=== PATIENT | male | born 1975 | race Caucasian/White ===

== ENCOUNTER 2023-12-24 14:21 | Inpatient (IN) | payer MEDICARE ==
[2023-12-24] VITALS (97 sets, daily range): BP systolic 155; BP diastolic 93; PULSE 70; TEMP 98.5; O2SAT 86–99
[~2023-12-24] VITALS: Ht 177.8 cm; Wt 97.5 kg
[~2023-12-24 14:21] MED LIST: TESSALON P100 MG/CAP PO
[2023-12-24 14:51] LABS: HEMATOCRIT 43.6 % (42.0-52.0); HEMOGLOBIN 14.7 g/dl (13.5-18.0); MEAN CELL VOLUME 92 fl (80.0-100.0); MEAN CORPUSCULAR HEMOGLOBIN 31 pg (27-31); MEAN CORPUSCULAR HGB CONC 34 g/dl (33.0-37.0); MEAN PLATELET VOLUME 9.6 fl (7.4-10.4); PLATELET COUNT 294 K/mm3 (130-400); RED BLOOD COUNT 4.72 M/mm3 (4.20-5.60); REDCELL DISTRIBUTION WIDTH-CV 13.8 % (11.5-14.5)
[2023-12-24 14:59] LABS: PARTIAL THROMBOPLASTIN TIME 34.1 SECONDS (26.0-37.0)
[2023-12-24 15:01] LABS: BILIRUBIN,TOTAL 0.2 mg/dL (0.2-1.2); CALCIUM 9.6 mg/dL (8.4-10.2); CREATININE, serum 0.92 mg/dL (0.72-1.25); MAGNESIUM 1.9 mg/dL (1.6-2.6); POTASSIUM 3.9 mmol/L (3.5-4.5); TOTAL PROTEIN 7.7 gm/dL (6.2-8.1)
[2023-12-24 15:07] LABS: TROPONIN-I 0.021 ng/mL (0.00-0.033)
[2023-12-24 15:26] LABS: BAND 10 % (0-10); EOSINOPHIL 1 % (0-4); LYMPHOCYTE 34 % (20.0-51.0); NEUTROPHILS 53 % (42.0-75.2)
[2023-12-24] MEDS ORDERED: Nitroglycerin 0.4 MG/HR DAILY PATCH TD ONE (18:00)
[2023-12-24] MEDS ORDERED: Clopidogrel 300 MG DOSE (75 mg x 4 tabs) PO ONE (18:00)
[2023-12-24] MEDS ORDERED: Metoprolol Tartrate 25 MG TAB PO ONE (18:00)
[2023-12-24] MEDS ORDERED: Ondansetron 4 MG/2 ML VIAL IV ONE (18:15)
[2023-12-24] MEDS ORDERED: Magnes Hydrox (MOM) 80 MG/ML 30 ML CUP PO PRN (18:45)
[2023-12-24] MEDS ORDERED: Promethazine 25 MG Rectal SUPP RC PRN (18:45)
[2023-12-24] MEDS ORDERED: Ondansetron 4 MG/2 ML VIAL IV PRN (18:45)
[2023-12-24] MEDS ORDERED: NS 1,000 ML IV SCH (18:45)
[2023-12-24] MEDS ORDERED: Mag/Al Hydrox/Simeth Susp 30 ML CUP PO PRN (18:45)
[2023-12-24] MEDS ORDERED: Nitroglycerin 2% Topical Oint 1 GM UD TD SCH (18:56)
[2023-12-24] MEDS ORDERED: Morphine 4 MG/ML VIAL IV PRN (19:00)
[2023-12-24] MEDS ORDERED: CLARITIN 1010 MG/TAB PO (19:14)
[2023-12-24] MEDS ORDERED: Nitroglycerin/D5W 250 ML IV SCH (19:15)
--- NOTE | 2023-12-24 19:39 | NUR ---
PATIENT ARRIVED TO ICU VIA WHEELCHAIR FROM ER. PATIENT HAS COMPLAINTS OF NAUSEA AND CHEST PAIN AT THIS TIME. ORDERS FOR ZOFRAN, MORPHINE, AND NITRO DRIP IN NOV. PATIENT ARRIVED ON ROOM AIR. PATIENT ARRIVED WITH GLASSES, CELL PHONE, DAIRY CHEMIST, CLOTHES, SHOES, JEWELRY, WALLET. PATIENT DOES NOT WISH TO SEND VALUABLES TO SECURITY AT THIS TIME.
[2023-12-24] MEDS ORDERED: [UNRECOGNIZED DRUG - OTHER] PO SCH (21:00)
[2023-12-24] MEDS ORDERED: Atorvastatin 10 MG TAB PO SCH (21:00)
[2023-12-24] MEDS ORDERED: LOVASTATIN 20 MG PO SCH (21:00)
[2023-12-24] MEDS ORDERED: Famotidine 20 MG TAB PO SCH (21:00)
[2023-12-24] MEDS ORDERED: Melatonin 3 MG TAB PO PRN (21:00)
[2023-12-24] MEDS ORDERED: Docusate Sodium 100 MG CAP PO SCH (21:00)
[2023-12-24] MEDS ORDERED: Atorvastatin 40 MG TAB PO SCH (21:00)
[2023-12-24] MEDS ORDERED: Heparin 5,000 UNITS/ML 1 ML VIAL IV PRN (22:45)
[2023-12-24] MEDS ORDERED: Heparin/D5W 250 ML IV SCH (22:45)
[2023-12-25] VITALS (471 sets, daily range): BP systolic 93–121; BP diastolic 48–74; PULSE 65–92; TEMP 97.8–98.6; O2SAT 83–100
[2023-12-25 04:42] LABS: HEMATOCRIT 38.1 % (42.0-52.0); HEMOGLOBIN 12.8 g/dl (13.5-18.0); MEAN CELL VOLUME 92 fl (80.0-100.0); MEAN CORPUSCULAR HEMOGLOBIN 31 pg (27-31); MEAN CORPUSCULAR HGB CONC 34 g/dl (33.0-37.0); MEAN PLATELET VOLUME 9.5 fl (7.4-10.4); PLATELET COUNT 254 K/mm3 (130-400); RED BLOOD COUNT 4.15 M/mm3 (4.20-5.60)
[2023-12-25 05:00] LABS: CALCIUM 8.8 mg/dL (8.4-10.2); CHOLESTEROL RISK RATIO 9.2; CREATININE, serum 0.94 mg/dL (0.72-1.25); POTASSIUM 3.9 mmol/L (3.5-4.5)
[2023-12-25 05:35] LABS: BAND 2 % (0-10); LYMPHOCYTE 58 % (20.0-51.0); NEUTROPHILS 39 % (42.0-75.2); PLATELET ESTIMATE NORMAL (NORMAL)
--- NOTE | 2023-12-25 07:00 | NUR ---
Report received from ELVIA Fowler; patient currently resting in bed with eyes closed. Patient has nitro, heparin, and NS running through a peripheral line; patient is on 3 liters oxygen via NC. No other lines or tubes are in place at this time. Patient's vital signs are within normal limits this morning.
[2023-12-25] MEDS ORDERED: Metoprolol Tartrate 25 MG TAB PO SCH (09:00)
[2023-12-25] MEDS ORDERED: Nicotine 21 MG DAILY PATCH TD SCH (09:00)
[2023-12-25] MEDS ORDERED: Loratadine 10 MG TAB PO SCH (09:00)
[2023-12-25] MEDS ORDERED: Clopidogrel 75 MG TAB PO SCH (09:00)
--- NOTE | 2023-12-25 09:18 | NUR ---
Underground Drill Operator met with patient to complete initial intake. Patient lives in [place] with his son, Drew along with Drew's and their children. Patient also has a life partner, Ofelia (ph#[phone]) however she does not live in the home. Patient does not have primary care established but was interested in assistance with getting established somewhere. SW provided list of local PCPs. Patient gets medications from [facility] and does not use any medical equipment. Patient is independent with ADLS and plans to return home at time of discharge. Patient does not have DPOA-HC and is not interested in creating one at this time. Patient is not and has two children, Drew and Stephanie, who lives in [place]. Discharge Plan: Home
--- NOTE | 2023-12-25 11:46 | NUR ---
D: Initial visit: Radiologic Technologist stopped by room on rounds. Pt was resting and content watching tv. A: Pt stated he has no needs right now. P: Radiologic Technologist informed pt that if he needed anything from the production reproduction manager area to let his nurse know. Radiologic Technologist will follow up as needed.
[2023-12-25] MEDS ORDERED: Bivalirudin 250 MG in NS 50 ML IV SCH (15:16)
[2023-12-25] MEDS ORDERED: Midazolam 2 MG/2 ML VIAL IV SCH (15:39)
[2023-12-25] MEDS ORDERED: fentaNYL 50 MCG/ML 2 ML VIAL IV SCH (15:40)
--- NOTE | 2023-12-25 16:00 | NUR ---
Pt returned from lab manager at 1556. Pt is drowsy but easily arousable and oriented. Site to right groin is soft, nontender and dressing is CDI. Pt currently denies any chest pain. Nitro infusing at 30mcg/min. Orders to titrate nitro off as patient tolerates. Vital signs are stable. Call light within reach. Will continue with POC.
--- NOTE | 2023-12-25 16:01 | NUR ---
Bedside report completed with Amarilys Moralze. Nitro at 30mcg/min, angiomax at 34ml/hr to be run for 2 hours from infusion start. Call light within reach, first set of vitals reviewed. Insertion site reviewed. Amarilys MORALEZ denies questions concerns at this time.
--- NOTE | 2023-12-25 16:04 | NUR ---
See merge for all medication, assessment, intervention, and vital sign times.
--- NOTE | 2023-12-25 20:03 | NUR ---
Received report from ELVIA Carbajal. Pt is currently alert and resting in bed with call light within reach. Pt's right femoral cath site looks clean, dry and intact with no hematoma's present and pulses felt. Pt is still in flat time until 2200. Pt's vitals are stable at this time. Pt denies CP at this time. Pt on nitro drip at this time and was titrating down due to no complaints of CP. Pt also has NS running at this time. Pt is on room air. Pt does not look in distress at this time. Will contiue with pt care.
[2023-12-26] VITALS (10 sets, daily range): BP systolic 109–130; BP diastolic 57–76; PULSE 61–70; TEMP 97.7–98.2; O2SAT 91–95
[2023-12-26 05:16] LABS: BASO % 0.4 % (0.0-2.0); EOS # 0.1 K/mm3 (0.0-0.7); EOS % 0.8 % (0.0-4.0); GRAN # 5.4 K/mm3 (1.4-6.5); GRAN % 60.7 % (42.2-75.2); HEMATOCRIT 38.7 % (42.0-52.0); HEMOGLOBIN 12.9 g/dl (13.5-18.0); LYMPH # 2.8 K/mm3 (1.2-3.4); LYMPH % 31.3 % (20.0-51.0); MEAN CELL VOLUME 94 fl (80.0-100.0); MEAN CORPUSCULAR HEMOGLOBIN 31 pg (27-31); MEAN CORPUSCULAR HGB CONC 33 g/dl (33.0-37.0); MEAN PLATELET VOLUME 10.3 fl (7.4-10.4); MONO # 0.5 K/mm3 (0.1-0.6); MONO % 5.5 % (1.7-9.3); PLATELET COUNT 214 K/mm3 (130-400); RED BLOOD COUNT 4.13 M/mm3 (4.20-5.60)
--- NOTE | 2023-12-26 06:04 | NUR ---
Pt had an uneventful night. Pt denied chest pain throughout the night. Pt states that there is some pain at his groin site but the pain never increased and the right fomoral site is clean, dry, and intact with no hematomas felt. Pt's pulses are felt. Pt is now off the nitro drip and NS has been stopped. Pt's vitals have been stable throughout the night with pt on room air. Pt is currently resting in bed with the call light within reach. Will give report to day shift nurse.
[2023-12-26 06:16] LABS: CALCIUM 8.6 mg/dL (8.4-10.2); CREATININE, serum 0.88 mg/dL (0.72-1.25); POTASSIUM 4.2 mmol/L (3.5-4.5)
--- NOTE | 2023-12-26 07:00 | NUR ---
Report received from ELVIA Sethi; patient currently resting in bed with no meds or fluids running through his peripheral IVs. Patient is on room air and vital signs are within normal limits this morning. Patient has no complaints of pain this morning; chest pain has not returned.
[2023-12-26] MEDS ORDERED: PLAVIX 75MG TAB75 MG PO (08:14)
[2023-12-26] MEDS ORDERED: NITROSTAT0.4 MG/TAB SL (08:15)
[2023-12-26] MEDS ORDERED: LIPITOR 40MG TA40 MG PO (08:15)
[2023-12-26] MEDS ORDERED: TOPROL XL 50MG50 MG PO (08:16)
[2023-12-26] MEDS ORDERED: ASPIRIN E.C. 8181 MG PO (08:16)
--- NOTE | 2023-12-26 12:00 | NUR ---
Patient discharged home with instructions to follow up with cardiology; patient taken out by wheelchair by this nurse. Patient in stable condition and all questions were answered.
--- NOTE | 2023-12-26 13:07 | NUR ---
Discussed when to contact the physician for signs of symptoms of complications or MA. Also reviewed risk factors for heart disease. Covered applicable modifiable risk factors including the following: tobacco cessation, HTN, hyperlipidemia, diabetes, overweight/obesity, sedentary lifestyle, and stress/depression. Patient verbalized understanding. Referral sent to [facility] with pt permission. Staff will f/u with patient via phone 12/27- to schedule.
== END 2023-12-26 12:15 | disposition home or self-care (01) | DRG 322 ==
LOC: COL.ER 14:21 → ICU 19:03
PROVIDERS: Family Medicine; Nurse Practitioner; Nurse Practitioner Family; ADMIT Hospitalist
PROC: 027034Z Dilation of Coronary Artery, One Artery with Drug-eluting Intraluminal Device, Percutaneous Approach (ICD-10-PCS; principal; 2023-12-24)
PROC: B2111ZZ Fluoroscopy of Multiple Coronary Arteries using Low Osmolar Contrast (ICD-10-PCS; 2023-12-24)
DX: I21.4 Non-ST elevation (NSTEMI) myocardial infarction (principal); R03.0 Elevated blood-pressure reading, without diagnosis of hypertension; Z72.0 Tobacco use
CPT/HCPCS: C1725; C1760; C1769; C1874; C1887; C1894; C9600; G0378; J0583; J0780; J1644; J1650; J2250; J2270; J2305; J2405; J3010; J7030

== ENCOUNTER 2024-02-04 09:57 | Emergency (ER) | payer MEDICARE, MEDICAID ==
[~2024-02-04] VITALS: Ht 177.8 cm; Wt 100.0 kg
[~2024-02-04 09:57] MED LIST changes: +ASPIRIN E.C. 8181 MG PO; +CLARITIN 1010 MG/TAB PO; +LIPITOR 40MG TA40 MG PO; +NITROSTAT0.4 MG/TAB SL; +PLAVIX 75MG TAB75 MG PO; +TOPROL XL 50MG50 MG PO
[2024-02-04 10:14] VITALS: TEMP 97.9
[2024-02-04] MEDS ORDERED: Ketorolac 15 MG/ML VIAL IV ONE (10:45)
[2024-02-04] MEDS ORDERED: NS 1,000 ML IV ONE (10:45)
[2024-02-04 11:03] LABS: BASO # 0.1 K/mm3 (0.0-0.2); BASO % 0.9 % (0.0-2.0); EOS # 0.1 K/mm3 (0.0-0.7); EOS % 0.9 % (0.0-4.0); GRAN # 6.2 K/mm3 (1.4-6.5); GRAN % 63.8 % (42.2-75.2); HEMATOCRIT 41.6 % (42.0-52.0); HEMOGLOBIN 13.9 g/dl (13.5-18.0); LYMPH # 2.8 K/mm3 (1.2-3.4); LYMPH % 28.8 % (20.0-51.0); MEAN CELL VOLUME 97 fl (80.0-100.0); MEAN CORPUSCULAR HEMOGLOBIN 32 pg (27-31); MEAN CORPUSCULAR HGB CONC 33 g/dl (33.0-37.0); MEAN PLATELET VOLUME 9.9 fl (7.4-10.4); MONO # 0.5 K/mm3 (0.1-0.6); MONO % 5.1 % (1.7-9.3); PLATELET COUNT 240 K/mm3 (130-400); RED BLOOD COUNT 4.31 M/mm3 (4.20-5.60)
[2024-02-04 11:35] LABS: ALANINE AMINOTRANSFERASE 23 U/L (0-55); ALBUMIN 3.9 g/dL (3.5-5.0); ALKALINE PHOSPHATASE 59 U/L (40-150); ANION GAP 12 mmol/L (7-16); AST,SGOT 18 U/L (5-34); BILIRUBIN,TOTAL 0.4 mg/dL (0.2-1.2); BLOOD UREA NITROGEN 9 mg/dL (8-26); CALCIUM 9.6 mg/dL (8.4-10.2); CHLORIDE 106 mEq/L (98-107); CREATININE, serum 0.85 mg/dL (0.72-1.25); GLUCOSE 104 mg/dL (70-99); SODIUM 138 mEq/L (136-145); TOTAL PROTEIN 7.3 g/dl (6.2-8.1)
[2024-02-04 11:47] LABS: TROPONIN-I < 0.010 ng/mL (0.00-0.033)
[2024-02-04 12:12] LABS: PROTHROMBIN TIME 10.9 SECONDS (9.7-12.8)
[2024-02-04] MEDS ORDERED: fentaNYL 50 MCG/ML 2 ML VIAL IV ONE (12:30)
[2024-02-04] MEDS ORDERED: PREDNISONE50 MG PO (13:06)
[2024-02-04] MEDS ORDERED: NORCO 325 MG-51 TAB PO (13:06)
[2024-02-04] MEDS ORDERED: FLEXERIL 1010 MG/TAB PO (13:06)
[2024-02-04 13:43] VITALS: BP 133/74; PULSE 63
== END 2024-02-04 13:43 | disposition home or self-care (01) ==
LOC: COL.ER 09:57
PROVIDERS: Emergency Medicine
DX: M25.512 Pain in left shoulder (principal); F17.200 Nicotine dependence, unspecified, uncomplicated
CPT/HCPCS: J1885; J3010; J3360; J7030

== ENCOUNTER 2024-03-20 20:32 | Emergency (ER) | payer MEDICARE, MEDICAID ==
[~2024-03-20] VITALS: Ht 177.8 cm; Wt 98.6 kg
[~2024-03-20 20:32] MED LIST changes: +FLEXERIL 1010 MG/TAB PO; +NORCO 325 MG-51 TAB PO; +PREDNISONE50 MG PO
[2024-03-20 20:41] VITALS: TEMP 98
[2024-03-20 21:12] LABS: COLLECTION METHOD CLEAN CATCH
[2024-03-20] MEDS ORDERED: LR 1,000 ML IV ONE (21:15)
[2024-03-20] MEDS ORDERED: Morphine 4 MG/ML VIAL IV ONE (21:15)
[2024-03-20] MEDS ORDERED: Ondansetron 4 MG/2 ML VIAL IV ONE (21:15)
[2024-03-20 21:21] LABS: BASO # 0.1 K/mm3 (0.0-0.2); BASO % 0.7 % (0.0-2.0); EOS # 0.1 K/mm3 (0.0-0.7); EOS % 0.7 % (0.0-4.0); GRAN # 9.4 K/mm3 (1.4-6.5); GRAN % 67.3 % (42.2-75.2); HEMATOCRIT 42.4 % (42.0-52.0); HEMOGLOBIN 14.3 g/dl (13.5-18.0); LYMPH # 3.4 K/mm3 (1.2-3.4); LYMPH % 24.7 % (20.0-51.0); MEAN CELL VOLUME 93 fl (80.0-100.0); MEAN CORPUSCULAR HEMOGLOBIN 32 pg (27-31); MEAN CORPUSCULAR HGB CONC 34 g/dl (33.0-37.0); MEAN PLATELET VOLUME 10.5 fl (7.4-10.4); MONO # 0.9 K/mm3 (0.1-0.6); MONO % 6.1 % (1.7-9.3); PLATELET COUNT 269 K/mm3 (130-400); RED BLOOD COUNT 4.54 M/mm3 (4.20-5.60); REDCELL DISTRIBUTION WIDTH-CV 13.6 % (11.5-14.5)
[2024-03-20 21:23] LABS: URINE APPEARANCE CLEAR (CLEAR/HAZY); URINE BLOOD NEGATIVE (NEGATIVE); URINE COLOR Dark Yellow (YELLOW); URINE GLUCOSE NEGATIVE (NEGATIVE); URINE KETONE 1+ (NEGATIVE); URINE NITRATE NEGATIVE (NEGATIVE); URINE PROTEIN(semi-quant) 2+ (NEGATIVE)
[2024-03-20 21:36] LABS: BILIRUBIN,TOTAL 0.3 mg/dL (0.2-1.2); C-REACTIVE PROTEIN 0.3 mg/dL (0.00-0.50); CALCIUM 10.3 mg/dL (8.4-10.2); CREATININE, serum 1.08 mg/dL (0.72-1.25); POTASSIUM 3.8 mEq/L (3.5-4.5); TOTAL PROTEIN 7.5 g/dl (6.2-8.1)
[2024-03-20 21:45] LABS: MUCOUS PRESENT (NOT PRESENT); SQUAMOUS EPITHELIAL NONE SEEN /hpf (0-10); URINE BACTERIA RARE /hpf (NONE SEEN); URINE CALCIUM OXALATE CRYSTAL PRESENT (NOT PRESENT); URINE RBC NONE SEEN /hpf (0-2); URINE WBC 0-2 /hpf (0-2)
[2024-03-20] MEDS ORDERED: HYDROmorphone 0.5 MG/0.5 ML SYRINGE IV ONE (22:45)
[2024-03-20] MEDS ORDERED: AMOXICILLIN 8751 TAB PO (22:54)
[2024-03-20] MEDS ORDERED: Home HYDROcodone/Acetaminophen 5/325 MG #4 TABS/PACK PO ONE (23:00)
[2024-03-20] MEDS ORDERED: cefTRIAXone 2 G in Water For Injection,Sterile 20 ML IV ONE (23:00)
[2024-03-20 23:13] VITALS: BP 142/77; PULSE 82
== END 2024-03-20 23:14 | disposition home or self-care (01) ==
LOC: COL.ER 20:32
PROVIDERS: Family Medicine
DX: N12 Tubulo-interstitial nephritis, not specified as acute or chronic (principal)
CPT/HCPCS: J0696; J1170; J2270; J2405; J7120

== ENCOUNTER 2024-07-11 14:16 | Emergency (ER) | payer MEDICARE, MEDICAID ==
[~2024-07-11] VITALS: Ht 177.8 cm; Wt 93.2 kg
[~2024-07-11 14:16] MED LIST changes: +AMOXICILLIN 8751 TAB PO
[2024-07-11 14:38] VITALS: TEMP 97.7
[2024-07-11] MEDS ORDERED: Home HYDROcodone/Acetaminophen 5/325 MG #4 TABS/PACK PO ONE (19:45)
[2024-07-11 20:00] VITALS: BP 134/81; PULSE 67
== END 2024-07-11 20:00 | disposition home or self-care (01) ==
LOC: COL.ER 14:16
DX: M25.531 Pain in right wrist (principal)